=== PATIENT | male | born 1950 | race Caucasian/White ===

== ENCOUNTER 2019-12-01 05:52 | Day surgery (SDC) | payer MEDICARE, BC ==
[2019-12-01] MEDS ORDERED: Lactated Ringers 1,000 ML IV SCH (06:30)
[2019-12-01] MEDS: Nozin Nasal Sanitizer NASBOTH SCH ×2 (06:31→21:39)
[2019-12-01] MEDS ORDERED: Povidone-Iodine 10% Soln 118.25 ML Bottle ONE (06:36)
[2019-12-01] MEDS ORDERED: ceFAZolin 2 GM in Premix Bag 1 BAG IV ONE (07:25)
[2019-12-01] MEDS ORDERED: fentaNYL 250 MCG/5 ML SDV ONE (07:27)
[2019-12-01] MEDS ORDERED: Neostigmine Methylsulfate 1 MG/ML 5 ML Syringe ONE (07:28)
[2019-12-01] MEDS ORDERED: Rocuronium 50 MG/5 ML Vial ONE (07:28)
[2019-12-01] MEDS ORDERED: Propofol 200 MG/20 ML SDV ONE (07:28)
[2019-12-01] MEDS ORDERED: Ondansetron 4 MG/2 ML SDV ONE (07:28)
[2019-12-01] MEDS ORDERED: Glycopyrrolate 0.2 MG/ML 5 ML MDV ONE (07:28)
[2019-12-01] MEDS ORDERED: Dexamethasone 4 MG/ML SDV ONE (07:28)
[2019-12-01] MEDS ORDERED: Scopolamine 1.5 MG Transdermal Patch TOP SCH (07:30)
[2019-12-01] MEDS ORDERED: Bupivacaine 0.5% 30 ML SDV ONE (07:31)
[2019-12-01] MEDS ORDERED: Lactated Ringers 1,000 ML ONE (09:02)
[2019-12-01] MEDS ORDERED: Magnesium Hydroxide 400 MG/5 ML Susp 30 ML Cup PO PRN (09:24)
[2019-12-01] MEDS ORDERED: Ondansetron 4 MG/2 ML SDV IVPUSH PRN (09:24)
[2019-12-01] MEDS ORDERED: Morphine 2 MG/ML Syringe IVPUSH PRN (09:24)
[2019-12-01] MEDS ORDERED: Acetaminophen/oxyCODONE 325-5 MG Tab PO PRN (09:24)
[2019-12-01] MEDS ORDERED: ceFAZolin 1 GM in Sodium Chloride 0.9% 50 ML IV SCH (09:30)
[2019-12-01] MEDS ORDERED: Fluticasone Propionate Nasal Spray 16 GM Bottle NASBOTH PRN (09:31)
[2019-12-01] MEDS ORDERED: Non-Formulary Medication 1 Each (Prednisolone Acetate/Pf [Prednisolone Acet 1% Eye Drop] 1 EYEBOTH SCH (10:00)
[2019-12-01] MEDS ORDERED: prednisoLONE Acetate 1% Ophth Susp 5 ML Bottle EYEBOTH SCH (11:30)
[2019-12-01] MEDS: VERIFY SCOP PATCH TOP SCH (12:00)
--- NOTE | 2019-12-01 12:33 | CR ---
Shoulder 1V Lt CLINICAL HISTORY: Postop FINDINGS: Patient has a left humeral arthroplasty. There is spurring at the AC joint. Impression: Status post left humeral head prosthesis
[2019-12-01] MEDS: Ketorolac 30 MG/ML SDV IVPUSH PRN ×2 (13:34→21:45)
[2019-12-01] MEDS: ceFAZolin 1 GM in Premix Bag 1 BAG IV SCH ×2 (14:16→21:55)
[2019-12-01] MEDS: Sodium Chloride 0.9% 1,000 ML IV SCH ×2 (14:18→22:31)
[2019-12-01] MEDS: PREDNISOLONE ACETATE 1% EYEBOTH SCH ×2 (16:49→21:42)
[2019-12-01] MEDS ORDERED: ACETAMINOPHEN 1300 MG PO SCH (21:00)
[2019-12-01] MEDS ORDERED: atorvaSTATin 20 MG Tab PO SCH (21:00)
[2019-12-01] MEDS: Acetaminophen 500 MG Tab PO SCH (21:40)
[2019-12-02] MEDS: PREDNISOLONE ACETATE 1% EYEBOTH SCH ×2 (06:10→11:21)
[2019-12-02] MEDS: ceFAZolin 1 GM in Premix Bag 1 BAG IV SCH (06:10)
[2019-12-02] MEDS: Ketorolac 30 MG/ML SDV IVPUSH PRN (08:02)
[2019-12-02] MEDS: Acetaminophen 500 MG Tab PO SCH (08:11)
[2019-12-02] MEDS: Nozin Nasal Sanitizer NASBOTH SCH (08:11)
[2019-12-02] MEDS: VERIFY SCOP PATCH TOP SCH (08:11)
[2019-12-02] MEDS ORDERED: Tamsulosin 0.4 MG Cap.ER PO SCH (09:00)
[2019-12-02] MEDS ORDERED: Aspirin 81 MG Tab.EC PO SCH (09:00)
--- NOTE | 2019-12-10 19:14 | OR ---
DATE OF PROCEDURE: 12/01/2019 SURGEON: Ruddy Cain MD PREOPERATIVE DIAGNOSIS: Osteoarthritis, left shoulder. POSTOPERATIVE DIAGNOSIS: Osteoarthritis, left shoulder. PROCEDURE: Hemiarthroplasty, left shoulder, using the Arthrosurface OVO system. ANESTHESIA: Interscalene with sedation. INDICATIONS: Gabino is a 69-year-old gentleman with a history of progressive pain in his left shoulder for the past year. It has gotten significantly worse in the past several months. Imaging and examination are consistent with osteoarthritis of the left shoulder with an intact rotator cuff. He is still quite active and the current plan is for a hemiarthroplasty of the left shoulder with the possibility of a total shoulder. Risks, benefits, and potential complications were discussed. DESCRIPTION OF PROCEDURE: After adequate anesthesia was obtained, the patient was placed in a modified beach-chair position. Left shoulder was then prepped and draped in a sterile fashion. Anterior incision was made and carried down through the subcutaneous tissues and hemostasis obtained with electrocautery. Cephalic vein was identified, freed medially, and retracted laterally with the deltoid. Self-retaining retractor was then placed beneath the deltoid and the conjoined tendon. Bicipital groove was identified and the subscapularis was then divided off the lesser tuberosity approximately a centimeter from its attachment leaving a cuff to repair to. Tag sutures were placed in the end of the tendon and used to retract it medially. The subscapularis and capsule were then divided off the humeral neck. Inferior osteophyte on the humeral head was present and this was removed with a combination of a rongeur and osteotome. Inferior release was continued allowing external rotation of the arm. Rotator cuff was intact. Biceps tendon was preserved. Retractor was then placed about the humeral head, which showed a very rough central erosion. The humerus was sized and the centering guide placed onto the humeral head. A guidewire was then drilled and the sizer removed. The appropriately-sized reamer was then used, placed over the central guide pin and stop. Trial was placed and showed a good fit. A 2nd reamer was then utilized. Guide pin was removed and the central core was cut. The screw guide was then placed and secured with three K-wires. Fixation screw was then sunk to the appropriate level. This was checked with the depth gauge. Head was then irrigated and all loose fragments were removed. A rongeur was used to remove the remaining rim of bone spur. The OVO head was then selected and secured in position over the anchoring screw and then tapped down. This provided excellent fit. Shoulder was thoroughly irrigated. Prior to placement of the final prosthesis, the glenoid was evaluated. This did not show any significant central or anterior erosion. Some thinning and scuffing were present and the labrum was intact. With the prosthesis in place, the shoulder was reduced and taken through range of motion. Showed good centering in the glenoid with approximately 50% translation anterior to posterior. The shoulder was irrigated once again including irrigation of a dilute Betadine solution. Subscapularis was then repaired with #2 Ethibond in interrupted fashion. #10 round drain was placed and brought out through a separate stab incision distal to the incision. Deltopectoral interval was allowed to fall back into position and the skin was then closed with 2-0 Vicryl and a running 3-0 Monocryl. Sterile dressing was applied. Drain was secured with a Tegaderm dressing. The patient tolerated the procedure very well. There were no complications. Taken from the operating room in stable condition. Ruddy Cain MD /[id number] [facility]
== END 2019-12-02 12:00 | disposition home or self-care (01) ==
LOC: JP.SDS 05:52 → JP.2SS 09:21 → JP.SDS 12-02 12:00
PROVIDERS: ATTEND Specialist
DX: M19.012 Primary osteoarthritis, left shoulder (principal); E78.00 Pure hypercholesterolemia, unspecified; K21.9 Gastro-esophageal reflux disease without esophagitis; E66.9 Obesity, unspecified; Z68.33 Body mass index [BMI] 33.0-33.9, adult
CPT/HCPCS: 23470; 36415; 73020; 80053; 85027; 97165; A9270; C1776; J0690; J1100; J1885; J2405; J2704; J2710; J3010; J3490; J7030; J7120

== ENCOUNTER 2020-09-08 05:57 | Day surgery (SDC) | payer MEDICARE, BC ==
[2020-09-08] MEDS ORDERED: Nozin Nasal Sanitizer NASBOTH ONE (06:30)
[2020-09-08] MEDS ORDERED: ceFAZolin 1 GM in Premix Bag 1 BAG IV ONE (07:00)
[2020-09-08] MEDS ORDERED: Lactated Ringers 1,000 ML IV SCH (07:00)
[2020-09-08] MEDS ORDERED: Propofol 200 MG/20 ML SDV ONE (07:12)
[2020-09-08] MEDS ORDERED: fentaNYL 100 MCG/2 ML SDV ONE (07:13)
[2020-09-08] MEDS ORDERED: Midazolam 1 MG/ML 2 ML SDV ONE (07:13)
[2020-09-08] MEDS ORDERED: Bupivacaine 0.5% 50 ML MDV ONE (07:16)
[2020-09-08] MEDS ORDERED: Bupivacaine 0.5% 30 ML SDV ONE (07:18)
--- NOTE | 2020-09-13 19:18 | OR ---
DATE OF PROCEDURE: 09/08/2020 SURGEON: Ruddy Cain MD PREOPERATIVE DIAGNOSIS: Osteoarthritis, left shoulder, possible rotator cuff tear. POSTOPERATIVE DIAGNOSES: 1. Osteoarthritis, left shoulder, with degenerative labral tear. 2. Synovitis. 3. Mild biceps tendinopathy. PROCEDURES: Arthroscopy of left shoulder with limited debridement of labrum and subacromial bursa and excision of synovitis. ANESTHESIA: Interscalene block with sedation. INDICATIONS: Gabino is a 70-year-old male with a long history of left shoulder pain. He had previously undergone decompression and a course of physical therapy and injections. He developed glenohumeral arthritis and more recently under went a hemiarthroplasty. Over the past several months, he has had increasing pain once again and symptoms consistent with rotator cuff pathology. Due to the implant in place, imaging is suboptimal. Due to his longstanding history of shoulder pain and symptoms consistent with rotator cuff tear or tendinopathy, a decision was made to proceed directly to diagnostic arthroscopy with treatment of the cuff as necessary. He also has a history of injury to the biceps tendon fairly shortly after the hemiarthroplasty and this will be evaluated as well. Risks, benefits, and potential complications of the procedure were discussed including the possibility that he may have persistent shoulder pain after the procedure. PROCEDURE IN DETAIL: After adequate anesthesia was obtained, the patient was placed in the lateral decubitus position and secured with a diallo bag positioner. The left shoulder and arm were prepped and draped in a sterile fashion. 10 pounds of traction was placed in the shoulder traction unit. A standard posterior portal was established, and the scope was introduced taking care to avoid scratching the prosthesis. The glenoid was visualized and showed degenerative tear of the labrum, particularly anteriorly. Anterior portal was established, and a shaver was used to debride this. Articular cartilage of the glenoid showed some chondromalacia without full-thickness cartilage loss. Biceps anchor was intact. The biceps itself was covered with a layer of synovium and scar tissue and was not readily visualized along its intra-articular path. Radiofrequency ablation wand was used to debride the synovial layer covering the biceps tendon. Once this was done, some very mild tendinopathy was noted at the junction between the cuff and the superior labrum. The tendon going up into the groove showed no breakdown or tendinopathy at all. A portion of the biceps was drawn into the joint for further evaluation and again no significant pathology was noted. Limited debridement was done around the margins of the glenoid and the edges of the prosthesis. The undersurface of the supraspinous and infraspinatus was very well visualized and showed no evidence of breakdown or tear. The scope was then removed and placed in the subacromial space. A lateral portal was established. Some very mild bursitis was present in the subacromial space. This was cleared for visualization. The level of the acromioplasty appeared very adequate, and there was no evidence of any impingement from the acromion onto the bursal surface of the cuff. The cuff was intact with no evidence of fraying or breakdown. This was thoroughly probed with the scope trocar and a hook probe. The arm was taken through internal and external rotation. The entirety of the cuff could be visualized with no evidence of significant pathology. The scope was removed from the posterior portal, placed in the lateral portal, and again arm was taken through internal and external rotation and abduction with no evidence of cuff tear, and the level of the acromioplasty was adequate and was not revised. Shoulder was drained. Port sites were closed in a standard fashion. Sterile dressing was applied. The patient tolerated procedure well. There were no complications. He was taken from the operating room in stable condition. Ruddy Cain MD /[id number]
== END 2020-09-08 10:30 | disposition home or self-care (01) ==
LOC: JP.SDS 05:57
PROVIDERS: ATTEND Specialist
DX: M19.012 Primary osteoarthritis, left shoulder (principal); M65.812 Other synovitis and tenosynovitis, left shoulder; M75.22 Bicipital tendinitis, left shoulder; S43.432A Superior glenoid labrum lesion of left shoulder, initial encounter; M94.212 Chondromalacia, left shoulder; E66.9 Obesity, unspecified; N18.9 Chronic kidney disease, unspecified; Z86.73 Personal history of transient ischemic attack (TIA), and cerebral infarction without residual deficits; Z86.010 Personal history of colon polyps; Z68.32 Body mass index [BMI] 32.0-32.9, adult
CPT/HCPCS: 36415; 80048; 85027; A9270-GY; C1713; J0690; J2250; J2704; J3010; J3490; J7120

== ENCOUNTER 2023-11-27 09:42 | Emergency (ER) | payer BC, MEDICARE, OTHER ==
[2023-11-27 10:34] LABS: BASOPHILS PERCENT AUTO 0.1 % (0.1-1.3); EOSINOPHILS PERCENT AUTO 0.1 % (0.0-5.4); HEMATOCRIT 35.6 % (38.4-49.7); HEMOGLOBIN 12.3 g/dL (12.9-16.9); IMMATURE GRAN ABSOLUTE AUTO 0.07 K/uL (0.00-0.23); IMMATURE GRAN PERCENT AUTO 0.5 % (0.0-0.7); LYMPHOCYTES ABSOLUTE AUTO 1.65 K/uL (0.8-3.3); LYMPHOCYTES PERCENT AUTO 10.7 % (11.4-47.7); MEAN CORPUSCULAR HEMOGLOBIN 30.9 pg (31.6-35.5); MEAN CORPUSCULAR HGB CONC 34.6 g/dL (31.6-35.5); MEAN CORPUSCULAR VOLUME 89.4 fL (81.4-99.0); MONOCYTES ABSOLUTE AUTO 1.32 K/uL (0.20-0.90); MONOCYTES PERCENT AUTO 8.5 % (3.3-12.6); NEUTROPHILS PERCENT AUTO 80.1 % (40.0-78.1); PLATELET COUNT,PLT 235 K/uL (130-375); RED BLOOD CELL COUNT 3.98 M/uL (4.14-5.76); WHITE BLOOD CELL COUNT,WBC 15.5 K/uL (3.2-11.0)
[2023-11-27 10:35] LABS: BASOPHILS ABSOLUTE AUTO 0.02 K/uL (0.00-0.10); EOSINOPHILS ABSOLUTE AUTO 0.01 K/uL (0.00-0.40)
== END 2023-11-27 10:58 | disposition home or self-care (01) ==
LOC: JP.ED 09:42
DX: T83.011A Breakdown (mechanical) of indwelling urethral catheter, initial encounter (principal); R31.9 Hematuria, unspecified; E78.00 Pure hypercholesterolemia, unspecified; K21.9 Gastro-esophageal reflux disease without esophagitis; Z86.73 Personal history of transient ischemic attack (TIA), and cerebral infarction without residual deficits; Z90.49 Acquired absence of other specified parts of digestive tract; Z87.891 Personal history of nicotine dependence; Z79.899 Other long term (current) drug therapy
CPT/HCPCS: 36415; 51700; 85025; 99283

== ENCOUNTER 2023-11-28 16:20 | Emergency (ER) | payer MEDICARE ==
[2023-11-28 17:20] LABS: AMORPHOUS SEDIMENT,URINE NOT SEEN; APPEARANCE,URINE CLOUDY (CLEAR); BACTERIA,URINE MANY; COLOR,URINE RED (YELLOW); EPITHELIAL CELLS,URINE NOT SEEN; MUCUS,URINE NOT SEEN; RBC,URINE PACKED (0-5)
[2023-11-28 17:21] LABS: OCCULT BLOOD,URINE LARGE (NEGATIVE)
== END 2023-11-28 18:23 | disposition home or self-care (01) ==
LOC: JP.ED 16:20
DX: T83.011A Breakdown (mechanical) of indwelling urethral catheter, initial encounter (principal); R31.0 Gross hematuria; E78.00 Pure hypercholesterolemia, unspecified; Z86.73 Personal history of transient ischemic attack (TIA), and cerebral infarction without residual deficits; Z90.49 Acquired absence of other specified parts of digestive tract; Z87.891 Personal history of nicotine dependence; Z79.82 Long term (current) use of aspirin; Z79.899 Other long term (current) drug therapy
CPT/HCPCS: 36415; 51798; 81001; 85018; 99283

== ENCOUNTER 2025-01-21 07:42 | Day surgery (SDC) | payer MEDICARE ==
[2025-01-21] MEDS ORDERED: fentaNYL 100 MCG/2 ML SDV ONE (08:00)
[2025-01-21] MEDS ORDERED: Propofol 200 MG/20 ML SDV ONE (08:01)
[2025-01-21] MEDS: Lactated Ringers 1,000 ML IV SCH (08:24)
== END 2025-01-21 11:15 | disposition home or self-care (01) ==
LOC: JP.SDS 07:42
PROVIDERS: ATTEND Surgery
DX: Z12.11 Encounter for screening for malignant neoplasm of colon (principal); K57.30 Diverticulosis of large intestine without perforation or abscess without bleeding; E78.5 Hyperlipidemia, unspecified; K21.9 Gastro-esophageal reflux disease without esophagitis; E66.9 Obesity, unspecified
CPT/HCPCS: 00812-QZ; J2704; J3010; J7120